=== PATIENT | female | born 1960 | race Caucasian/White ===

== ENCOUNTER → 2020-08-02 14:36 | Outpatient (CLI) | payer BC, SELFPAY | PROVIDERS: PCP Nurse Practitioner Family; Referring Provider Nurse Practitioner Family; Visit Provider Nurse Practitioner Family | DX: Z20.828 Contact with and (suspected) exposure to other viral communicable diseases (principal); U07.1 COVID-19 | CPT/HCPCS: U0003 ==

== ENCOUNTER 2023-04-06 06:55 | Day surgery (SDC) | payer BC, SELFPAY ==
[2023-04-01 17:22] VITALS: BMI 29.1
[2023-04-06] VITALS (12 sets, daily range): BP systolic 149–181; BP diastolic 70–101; PULSE 73–94; RESP 16–18; TEMP 36.2–36.4; O2SAT 95–100
--- NOTE | 2023-04-06 09:04 | SUR.OPER ---
2 sutures added for case. count correct for 2 sutures at end of case. axel may rn
== END 2023-04-06 09:37 | disposition home or self-care (01) ==
PROVIDERS: PCP Internal Medicine; Visit Provider Ophthalmology
PROC: (CPT 66984; principal; 2023-04-06 08:30)
DX: H25.811 Combined forms of age-related cataract, right eye (principal)
CPT/HCPCS: 66984; V2632

== ENCOUNTER 2023-05-11 06:56 | Day surgery (SDC) | payer BC, SELFPAY ==
[2023-05-05 17:00] VITALS: BMI 28.4
[2023-05-11] VITALS (9 sets, daily range): BP systolic 142–197; BP diastolic 78–97; PULSE 77–94; RESP 16–18; TEMP 36.1–36.8; O2SAT 98–100
== END 2023-05-11 09:17 | disposition home or self-care (01) ==
PROVIDERS: PCP Internal Medicine; Visit Provider Ophthalmology
PROC: (CPT 66984; principal; 2023-05-11 08:30)
DX: H25.812 Combined forms of age-related cataract, left eye (principal)
CPT/HCPCS: 66984; V2632